=== PATIENT | female | born 1950 | race Caucasian/White ===

== ENCOUNTER 2019-04-26 08:49 | Day surgery (SDC) ==
--- NOTE | 2019-03-29 08:39 | EKG Report ---
Test Performed on : 03/29/2019 08:22:54 AM Test Reason : PAT Blood Pressure : / mmHG Vent. Rate : 080 BPM Atrial Rate : 080 BPM P-R Int : 182 ms QRS Dur : 082 ms QT Int : 394 ms P-R-T Axes : 082 066 076 degrees QTc Int : 454 ms Normal sinus rhythm. Normal ECG When compared with ECG of 08-APR-2017 05:32, Previous EKG had excessive AC artifact, now resolved Confirmed by Bernadine MARQUEZ, Jorge Almeida ([id number]) on 03/29/2019 8:50:07 AM
[2019-03-29 09:01] LABS: URINE SOURCE CLEAN CATCH
[2019-03-29 09:47] LABS: BASO# 0.05 X1000 (0.0-0.2); BASO% 0.7 % (0.0-0.8); EOS# 0.32 X1000 (0.0-0.7); EOS% 4.3 % (0.0-10.0); HEMATOCRIT 44.8 % (37.0-47.0); HEMOGLOBIN 14.8 g/dL (12.0-16.0); IMM GRAN# 0.02 X1000 (0.0-0.04); IMM GRAN% 0.3 % (0.0-0.5); LYMPH# 1.24 X1000 (1.2-3.4); LYMPH% 16.6 % (20.5-51.1); MCH 30.1 PG (27-31); MCV 91.2 FL (81-99); MONO% 6.7 % (1.7-9.3); MPV 10.8 FL (7.4-10.4); NEUT# 5.35 X1000 (1.4-6.5); NEUT% 71.4 % (42.2-75.2); PLT 199 X1000 (130-400); RBC 4.91 XMIL (4.2-5.4); RDW 14.2 % (11.5-14.5); WBC 7.48 X1000 (4.8-10.8)
[2019-03-29 09:56] LABS: BILIRUBIN URINE NEGATIVE (NEGATIVE); BLOOD URINE NEGATIVE (NEGATIVE); COLOR YELLOW; GLUCOSE URINE NEGATIVE (NEGATIVE); INR 0.9; KETONE URINE NEGATIVE (NEGATIVE); LEUKOCYTES URINE TRACE (NEGATIVE); NITRITE URINE NEGATIVE (NEGATIVE); PH URINE 6.5; PROTEIN URINE NEGATIVE (NEGATIVE); PROTIME 12.3 Seconds (11.0-16.0); SP GRAVITY URINE < 1.005; TURBIDITY URINE CLEAR (CLEAR); UR EPITHELIAL CELLS <10 /HPF (<10); URINE BACTERIA NEGATIVE /HPF; URINE RBC <10 /HPF (<10); URINE WBC <10 /HPF (<10); UROBILINOGEN URINE NORMAL (NORMAL)
[2019-03-29 10:05] LABS: HEMOGLOBIN A1C 6.4 % (4.8-6.0)
[2019-03-29 14:43] LABS: AGAP 13; BUN 10 mg/dL (8-22); CALCIUM 8.5 mg/dL (8.8-10.2); CHLORIDE 99 mmol/L (98-107); COSMO 280; CREATININE 0.8 mg/dL (0.5-0.9); ESTIMATED GFR > 60; GLUCOSE 130 mg/dL (70-104); POTASSIUM 3.9 mmol/L (3.5-5.1); SODIUM 140 mmol/L (136-145); TCO2 28 mmol/L (25-35)
[~2019-04-26 08:49] MED LIST: DIPRIVAN 1% ONE
[2019-04-26] MEDS ORDERED: PEPCID ONE (08:59)
[2019-04-26] MEDS ORDERED: REGLAN ONE (08:59)
[2019-04-26] MEDS ORDERED: COLACE ONE (08:59)
[2019-04-26] MEDS ORDERED: KEFZOL 1 GM/D5W 2 GM/100 ML IVPB ONE (09:00)
[2019-04-26] MEDS ORDERED: LR 1,000 ML ONE (09:00)
[2019-04-26] MEDS ORDERED: LYRICA ONE (09:00)
[2019-04-26] MEDS ORDERED: TORADOL ONE (10:18)
[2019-04-26] MEDS ORDERED: DURAMORPH ONE (10:18)
[2019-04-26] MEDS ORDERED: VANCOMYCIN ONE (10:18)
[2019-04-26] MEDS ORDERED: MARCAINE 0.25% PF ONE (10:18)
[2019-04-26] MEDS ORDERED: SODIUM CHLORIDE 0.9% ONE (10:19)
[2019-04-26] MEDS ORDERED: EXPAREL 1.3% ONE (10:19)
[2019-04-26] MEDS ORDERED: CYKLOKAPRON 1,000 MG/NS 1,000 MG/100 ML IVPB ONE (10:19)
[2019-04-26] MEDS ORDERED: FENTANYL ONE (10:32)
[2019-04-26 11:31] LABS: URINE SOURCE CATH
[2019-04-26 11:35] LABS: BILIRUBIN URINE NEGATIVE (NEGATIVE); BLOOD URINE NEGATIVE (NEGATIVE); COLOR STRAW; GLUCOSE URINE NEGATIVE (NEGATIVE); KETONE URINE NEGATIVE (NEGATIVE); LEUKOCYTES URINE NEGATIVE (NEGATIVE); NITRITE URINE NEGATIVE (NEGATIVE); PH URINE 7.5; PROTEIN URINE NEGATIVE (NEGATIVE); SP GRAVITY URINE 1.006; TURBIDITY URINE CLEAR (CLEAR); UR EPITHELIAL CELLS <10 /HPF (<10); URINE BACTERIA NEGATIVE /HPF; URINE RBC <10 /HPF (<10); URINE WBC <10 /HPF (<10); UROBILINOGEN URINE NORMAL (NORMAL)
[2019-04-26] MEDS ORDERED: DIPRIVAN 1% ONE (11:53)
[2019-04-26] MEDS ORDERED: DECADRON ONE (11:55)
[2019-04-26] MEDS ORDERED: ZOFRAN ONE (11:55)
[2019-04-26] MEDS ORDERED: OFIRMEV 1000 MG/ISOTONIC SOLN 1,000 MG/100 ML BOTTLE ONE (11:55)
[2019-04-26] MEDS ORDERED: NS 1,000 ML ONE (13:05)
[2019-04-26] MEDS ORDERED: SALINE LOCK IV FLUID XX ONE (13:17)
--- NOTE | 2019-04-26 13:29 | Diag Imaging Result Doc PS360 ---
EXAM: KNEE 1-2 VIEWS-LEFT HISTORY: left TKA TECHNIQUE: Left knee two views COMPARISON: None. FINDINGS: Recent orthopedic replacement of the left knee. There are anterior skin gildardo and a superior surgical drain. No fracture. No dislocation. IMPRESSION: Good alignment to the tibial and femoral components of recent knee prosthesis placement. Electronically signed by Chi Starks 04/26/2019 1:27 PM
[2019-04-26] MEDS: NS 1,000 ML IV SCH (13:45)
[2019-04-26] MEDS ORDERED: ZOFRAN PO PRN (13:45)
[2019-04-26] MEDS ORDERED: MORPHINE IV PRN ×2 (13:45)
--- NOTE | 2019-04-26 15:14 | OPERATIVE NOTE ---
PROCEDURE DATE: 04/26/2019 PREOPERATIVE DIAGNOSIS: Osteoarthritis of the left knee. POSTOPERATIVE DIAGNOSIS: Osteoarthritis of the left knee. PROCEDURE: Left total knee arthroplasty with DePuy Attune size 4 narrow posterior stabilized femur, size 4 tibial tray with 7 mm rotating platform tibial insert, and a 32 mm medialized anatomic patella. SURGEONS: Seth Hou MD MOBILE ARCHITECT: ZACKARY Rodriguez who was necessary for proper positioning, retraction and manipulation of the extremity during the case. SECOND CODING AND REIMBURSEMENT SPECIALIST: ZACKARY Garcia and Fawad Pimentel RN. ANESTHESIA: Spinal. IV FLUIDS: 1800 mL lactated Ringer's. ESTIMATED BLOOD LOSS: 50 mL. TOURNIQUET TIME: 90 minutes at 300 mmHg. COMPLICATIONS: None. INDICATION: Patient is a pleasant 68-year-old female with chronic history of pain and discomfort of the left knee. Has continued pain and discomfort despite appropriate nonoperative treatment. X-rays revealed degenerative osteoarthritis and recommendation to proceed with left total knee arthroplasty was offered. Risks and benefits of surgery explained including risks of anesthesia, , bleeding, infection, failure to relieve pain, postoperative stiffness, nerve injury, blood clots, and other imponderables. All questions were answered. The patient and family wished to proceed with surgery. DETAILS OF OPERATION: Patient was taken to the operating room, underwent spinal anesthesia. After adequate anesthesia was obtained, she was placed supine on the operating table. Left lower extremity was subsequently prepped and draped in usual sterile fashion. An Esmarch was used to exsanguinate the left lower extremity and the tourniquet was inflated to 300 mmHg. A standard anterior incision was made with skin knife. Medial and lateral skin envelopes were developed. Standard medial parapatellar arthrotomy was then performed. Patella fat pad was excised. Retractors were then placed. Approximately 1 cm anterior to the PCL insertion, a starting reamer was passed. Intramedullary guide with a distal femoral cutting block was pinned in position. Distal femoral cut was then performed in standard fashion. A sizing block was placed and measured to a size 4. Corresponding pins were placed. A size 4 cutting block was placed in position. Anterior, posterior, and chamfer cuts were then made. Attention then turned to the proximal tibia where using the extramedullary guide, the proximal tibia cutting block was pinned in position. The proximal tibia was then pinned in position. The patient had good alignment confirmed with the alignment dixie. Proximal tibia was then resected. Medial and lateral menisci were excised. A curved osteotome was used to remove posterior osteophyte off the distal femur. A spacer block was then placed and a good soft tissue balance in both flexion and extension. After this had been performed, attention was then turned back to the tibia where a size 4 tibial tray appeared to be correct size. This was pinned in position. This was followed by a central reamer and a fin punch. A box cutting guide was then pinned on the distal femur. A box cut was then performed. Trial femoral component was then placed and 2 lug holes were drilled. A trial tibial insert was then placed and good soft tissue balancing. Patella was everted and resected in standard fashion. A size 32 appeared to be correct size. Corresponding holes were drilled. A size 32 patella component was then placed and had good patellofemoral tracking. Trial components were then removed. Copious irrigation was then performed with antibiotic pulsatile lavage while vancomycin was mixed with cement on the back table. Sequential cementing was then performed first with the tibial tray and excess cement was removed with a Bern followed by the femoral component and excess cement was removed with a Bern followed by trial tibial insert in full extension and axial loading was maintained while cement cured. The patella component was cemented in standard fashion. Patella clamp was placed. While cement was curing, Exparel was placed in deep soft tissue as well as subcutaneous tissue. After cement had cured, peripheral cement was removed with a small osteotome. The 7 mm rotating platform tibial insert appeared to be correct size. The trial insert was removed. Exparel was placed deep in posterior capsule. The wound was copiously irrigated once again. The 7 mm rotating platform tibial insert was then placed. Knee was then carried through range of motion. Good range of motion, good soft tissue balancing and good patellofemoral tracking. A 1/8 Hemovac drain was placed and was not sewn in. Copious irrigation then performed once again with antibiotic pulsatile lavage. Number 1 Vicryl was then used to repair the arthrotomy followed by 2-0 Vicryl to repair subcutaneous tissue, and skin gildardo. Adaptic, sterile 4 x 4's, Webril, cryo unit, Harish wrap was applied to left lower extremity. The patient tolerated the procedure well and was transferred to the recovery room in stable condition. cc: Seth Hou MD
[2019-04-26] MEDS: KEFZOL 2 GM/D5W 2 GM/50 ML IVPB IV SCH (17:05)
[2019-04-26] MEDS ORDERED: SUDAFED PO PRN (18:47)
[2019-04-26] MEDS ORDERED: BENADRYL PO PRN (18:47)
[2019-04-26] MEDS ORDERED: HYDROCHLOROTHIAZIDE PO PRN (18:47)
[2019-04-26] MEDS ORDERED: LIORESAL PO PRN (18:47)
[2019-04-26] MEDS ORDERED: IMITREX PO PRN (18:47)
[2019-04-26] MEDS: TOPROL XL PO SCH (21:09)
[2019-04-26] MEDS: COLACE PO SCH (21:09)
[2019-04-26] MEDS: PAMELOR PO SCH (21:09)
[2019-04-26] MEDS: PRINIVIL PO SCH (21:09)
[2019-04-26] MEDS: MORPHINE IV PRN (21:10)
[2019-04-26] MEDS: NEURONTIN PO SCH (21:10)
[2019-04-26] MEDS: OXY IR PO PRN (23:06)
[2019-04-27] MEDS: NS 1,000 ML IV SCH ×2 (00:13→05:53)
[2019-04-27] MEDS: MORPHINE IV PRN ×2 (02:10→07:03)
[2019-04-27] MEDS: KEFZOL 2 GM/D5W 2 GM/50 ML IVPB IV SCH (02:11)
[2019-04-27] MEDS: OXY IR PO PRN ×6 (04:54→20:23)
[2019-04-27] MEDS: XARELTO PO SCH ×2 (04:54→14:46)
[2019-04-27 06:55] LABS: HEMOGLOBIN 12.5 g/dL (12.0-16.0)
[2019-04-27 07:24] LABS: AGAP 12; BUN 11 mg/dL (8-22); CALCIUM 8.3 mg/dL (8.8-10.2); CHLORIDE 100 mmol/L (98-107); COSMO 273; CREATININE 0.8 mg/dL (0.5-0.9); ESTIMATED GFR > 60; GLUCOSE 133 mg/dL (70-104); POTASSIUM 3.8 mmol/L (3.5-5.1); SODIUM 136 mmol/L (136-145); TCO2 24 mmol/L (25-35)
--- NOTE | 2019-04-27 09:57 | ORTHOPAEDICS PROGRESS NOTE ---
DATE: 04/27/2019 SUBJECTIVE: Patient is a pleasant 68-year-old female who is 1 day status post a left total knee arthroplasty. She is currently resting comfortably. OBJECTIVE: On physical exam, patient's left lower extremity her wound looks good. There is no signs or symptoms of infection. Calf is soft. She is able to perform straight leg raise. She has active dorsiflexion and plantar flexion. Her hemoglobin and hematocrit is 12.5 and 38.0. IMPRESSION: Postoperative day #1 status post left total knee arthroplasty. PLAN: At this point, the patient will begin mobilization with physical therapy with full weightbearing left lower extremity. We will plan on discharging home after physical therapy. We will arrange for outpatient physical therapy. Patient will follow up in the office on 05/08/2019. cc: Seth Hou MD
[2019-04-27] MEDS: NEURONTIN PO SCH ×2 (10:07→20:22)
[2019-04-27] MEDS: RITALIN PO SCH (10:07)
[2019-04-27] MEDS: PRINIVIL PO SCH ×2 (10:07→20:23)
[2019-04-27] MEDS: TOPROL XL PO SCH ×2 (10:07→20:22)
[2019-04-27] MEDS: ZYRTEC PO SCH (10:07)
[2019-04-27] MEDS: PATIENT'S OWN MED TOP SCH ×2 (15:18→20:22)
[2019-04-27] MEDS: COLACE PO SCH (20:22)
[2019-04-27] MEDS: PAMELOR PO SCH (20:28)
[2019-04-28] MEDS: OXY IR PO PRN ×3 (04:02→13:28)
[2019-04-28] MEDS: XARELTO PO SCH (06:25)
[2019-04-28 06:31] LABS: HEMATOCRIT 40.8 % (37.0-47.0); HEMOGLOBIN 13.2 g/dL (12.0-16.0)
--- NOTE | 2019-04-28 06:31 | ORTHOPAEDICS PROGRESS NOTE ---
DATE: 04/28/2019 SUBJECTIVE: The patient is a pleasant 68-year-old female who is 2 days status post left total knee arthroplasty. She rested better last night and feels good this morning. PHYSICAL EXAMINATION: The left lower extremity wound looks good. There are no signs or symptoms of infection. Calf is soft. She has active dorsiflexion and plantar flexion. Her hemoglobin is 12.5 and hematocrit is 38.0. IMPRESSION: Postoperative day #2 status post left total knee arthroplasty. PLAN: At this point, we will plan on discharging home after physical therapy today. We will arrange for outpatient physical therapy next week. Patient will follow up in the office. The patient was somewhat slow to mobilize with physical therapy yesterday, and was not quite ready for discharge for home. She rested better last night and feels good this morning. cc: Seth Hou MD
[2019-04-28] MEDS: TOPROL XL PO SCH (10:21)
[2019-04-28] MEDS: NEURONTIN PO SCH (10:21)
[2019-04-28] MEDS: PRINIVIL PO SCH (10:21)
[2019-04-28] MEDS: ZYRTEC PO SCH (10:21)
[2019-04-28] MEDS: RITALIN PO SCH (10:21)
[2019-04-28 11:49] VITALS: BP 168/81
[2019-04-28] MEDS ORDERED: FLU VACCINE IM ONE (14:03)
== END 2019-04-28 14:38 | disposition home health service (06) ==
LOC: OR 08:49 → 4N 08:49 → OPS 08:49
PROVIDERS: ATTEND Orthopaedic Surgery Adult Reconstructive Orthopaedic Surgery